=== PATIENT | female | born 1940 | race Caucasian/White ===

== ENCOUNTER → 2016-09-30 | Outpatient (CLI) | payer MEDICARE, MEDICAID ==
[~2016-09-30] MED LIST: BYSTOLIC20 MG PO; CATAPRES0.1 MG PO; COZAAR50 MG PO; DESVENLAFAXINE50 M1 PO; FLONASE 50 MCG/16 GM NOSE; HALCION0.25 MG PO; HYDRODIURIL25 MG PO; LIPITOR20 M1 PO; MIRAPEX0.5 MG PO; NEXIUM40 MG PO; NORVASC5 MG PO; SINGULAIR10 MG PO; TYLENOL EXTRA500 MG PO; ULTRAM50 MG PO; VITAMIN D32000 UNI1 PO; ZYRTEC10 MG PO
== END | disposition disaster alternative care site (69) ==
LOC: GRAD 12:31
DX: Z87.891 Personal history of nicotine dependence (principal); N28.1 Cyst of kidney, acquired; N26.1 Atrophy of kidney (terminal); I70.1 Atherosclerosis of renal artery
CPT/HCPCS: G0297

== ENCOUNTER → 2016-10-20 | Outpatient (CLI) | payer MEDICARE, MEDICAID ==
[2016-10-20 17:01] LABS: BASOPHIL % 0.2 %; EOSINOPHIL % 0.7 %; HEMATOCRIT 38.2 % (33.0-46.0); HEMOGLOBIN 12.4 g/dL (10.0-15.0); IMMATURE GRANULOCYTE % 0.2 %; MCH 30.5 pg (27.0-34.0); MCHC 32.5 gm/dL (32.0-36.5); MCV 93.9 fl (83.0-98.0); MONOCYTE # 0.4 K/uL (0.0-1.0); MONOCYTE % 8.3 %; MPV 10.7 fl (9.4-12.4); NEUTROPHIL # (ANC) 3.2 K/uL (1.8-7.8); NEUTROPHIL % 68.6 %; NRBC % 0 /100WBC (0-0.00); PLATELET COUNT 172 K/uL (150-450); RBC 4.07 M/uL (3.50-5.50); RDW-CV 13.4 % (11.9-14.6); WBC 4.6 K/uL (4.0-11.0)
[2016-10-20 17:23] LABS: ANION GAP 12.8 (10.0-19.0); CALCIUM 8.3 mg/dL (8.5-10.5); CREATININE 1.1 mg/dL (0.5-1.1); POTASSIUM 3.8 mMol/L (3.7-5.1); TOTAL BILIRUBIN 0.5 mg/dL (0.0-1.5); TOTAL PROTEIN 6.8 g/dL (6.0-8.4)
== END ==
LOC: LNHI 16:44
PROVIDERS: Surgery Vascular Surgery
DX: Z01.818 Encounter for other preprocedural examination (principal)

== ENCOUNTER → 2016-10-22 | Outpatient (CLI) | payer MEDICARE, MEDICAID | END | disposition disaster alternative care site (69) | LOC: GRAD 07:38 | DX: I70.1 Atherosclerosis of renal artery (principal); I70.0 Atherosclerosis of aorta; I77.4 Celiac artery compression syndrome | CPT/HCPCS: Q9967 ==

== ENCOUNTER 2016-12-25 10:19 | Observation (INO) | payer MEDICARE, MEDICAID ==
[~2016-12-25] VITALS: Ht 157.5 cm; Wt 82.7 kg
--- NOTE | ~2016-12-25 | DS ---
PATIENT'S NAME: PETTY LIVINGSTON [facility] AGE: 76 Y [address] ROOM: [address] [address] LOCATION: [facility] ADMIT DATE: 12/25/2016 Discharge Summary DISCHARGE DATE: 12/27/2016 FAMILY PHYSICIAN: Nel Dove MD ATTENDING PHYSICIAN: Sierra Arciniega REASON FOR ADMISSION: The patient was a scheduled admission for an elective procedure. TREATMENT RENDERED: On the day of admission, the patient was taken to the operating room and had surgery. Surgery was bilateral laminectomy and foraminotomy at L4, L5, and S1. The patient had an unintended durotomy at the time of surgery, which was repaired with suture. Otherwise, her surgery was uncomplicated. Postoperative course was marked by urinary retention and she had a Quigley catheter placed. It was possible to remove the Quigley catheter eventually for the patient to go home; however, I did tell her to come back if she could not urinate because she might still have urinary retention once she went home. Otherwise, her postoperative course was uneventful. The plan is to see the patient back in [facility]surgery [facility] for followup in a week or two and also to remove her sutures at the same time. FINAL DIAGNOSIS: Lumbar spinal stenosis, status post lumbar laminectomy. MD JEYSON BARRYO/danyal /[id number] d: 01/06/17 0204 t: 01/07/17 1540, DISCHARGE SUMMARY
--- NOTE | ~2016-12-25 | OR ---
PATIENT'S NAME: PETTY LIVINGSTON [facility] AGE: 76 Y [address] ROOM: [address] [address] LOCATION: [facility] ADMIT DATE: 12/25/2016 OR/Procedure Report DISCHARGE DATE: 12/27/2016 FAMILY PHYSICIAN: Nel Dove MD ATTENDING PHYSICIAN: Sierra Underwood SURGEON: Sierra Underwood MD DATAPOWER DEVELOPER: Renetta Khan CST DATE OF PROCEDURE: 12/25/2016 PREOPERATIVE DIAGNOSIS: Lumbar spinal stenosis. POSTOPERATIVE DIAGNOSIS: Lumbar spinal stenosis. PROCEDURES PERFORMED: 1. Bilateral laminectomy with decompression of neural elements and foraminotomy at L4-L5. 2. Bilateral laminectomy with decompression of neural elements and foraminotomy at L5-S1. 3. Repair of unintended durotomy. ANESTHESIA: General. HISTORY/INDICATIONS: This patient is a 76-year-old female who presented with back and leg pain. The patient's symptoms had gotten progressively worse, and it was difficult for her to stand up even to bake, and she was using a walker to get around. She had done epidural injections without much benefit. Surgery was recommended. The above procedures, benefits and risks were discussed with the patient and with her consent, she was brought to the operating room for surgery. PROCEDURE IN DETAIL: In the operating room, the patient was placed in a supine position. Anesthesia was induced. She was intubated. The patient was then carefully rolled to a prone position on the Corey table taking care to protect all pressure points. The incision was marked out in the midline of her lower back and the whole area was prepped and draped in a sterile fashion. Local anesthesia was infiltrated along the incision line. The #10 blade was used to open the incision. It was deepened to the fascial layer. Self- retaining retractors were placed. The fascia was then opened and the incision deepened until the tips of the spinous processes were identified. The paraspinous muscles were dissected off the spinous process and laminae of L4, L5, and S1. Intraoperative x-ray was obtained to verify our levels. Laminectomy was then carried out bilaterally at L4, L5, and S1. There was significant foraminal stenosis at all the levels. Working very carefully, the nerve roots and the dural sac were decompressed. There was previous surgery PATIENT'S NAME: PETTY LIVINGSTON [facility] AGE: 76 Y [address] ROOM: [place] [address] LOCATION: [facility] ADMIT DATE: 12/25/2016 OR/Procedure Report DISCHARGE DATE: 12/27/2016 FAMILY PHYSICIAN: Nel Dove MD ATTENDING PHYSICIAN: Sierra Underwood at the L3-L4 level. While working on the inferior edge of the L3 lamina and unintended durotomy or cord. This was recognized at the time of surgery and was repaired with stitches. There was no CSF leak at the end of the repair. DuraSeal and DuraGen were used to reinforce the dura repair. Upon completion of the procedure, the area was irrigated thoroughly and hemostasis was achieved. The incision was closed in layers using appropriate suture materials. A sterile dressing was applied. The patient's anesthesia was reversed. She was rolled back to a supine position, extubated, and taken back to the recovery room to complete her recovery. I was present and performed every aspect of this procedure. We did have an unintended durotomy which was repaired at the time of surgery. I expect the patient to do well from this procedure. SIERRA UNDERWOOD MD CNO/modl /[id number] CC: Nel Dove MD d: 01/05/17 1247 t: 01/05/17 1822, OPERATIVE SUMMARY
--- NOTE | 2016-12-26 06:36 | NUR ---
Pt was bladder scanned three times as she didnt have an urge to void >6 hours. Pt straight cathed at 0400 with only 300 out. Pt receiving ultram and iv morphine for pain. Pt had nausea w/ emesis this shift, zofran given w/ no result. Attempted to call for additional orders. Pt complains of headache after dry heaving. Pt up w/ 1 assist to bathroom.
--- NOTE | 2016-12-26 17:10 | NUR ---
Significant Event:Patient had issues with nausea and vomiting this am. Zofran 4mg x1 at 1050. Phenergan 25mh IM x2 last at 1358. Tylenol 1000mg at 1358. Ultram 50mg x1. Dressing dry intact to back at lt hip. CSM WNL. Up in chair and ambulated to BR with walker and one assist. Up able to void. Will be placing rodriguez cath. Poor oral intake. Nausea improved Follow up:
--- NOTE | 2016-12-26 23:07 | NUR ---
Significant Event: A/O X 3. HAS SLIGHT WAVES OF NAUSEA, NO VOMITING. REFUSED INTERVENTION AT THIS TIME. TAKEN 50% OF EVENING MEAL. BACK DRSGS DRY-INTACT. DENIES LEGS PAIN OR NUMBNESS. RT FOOT FUSED. IV FLUIDS INFUSING. 02 REAPPLIED AT 2100 at 1L FOR SATS DIPPED AT 88% WITH 02 94%. INCENTIVE SPIROMETER USAGE [id number]. BILATERAL CALF PNEUMATICS ON. TAKES WATER, KEPT IT DOWN. [place]ARILLO CATHETER PATENT. ULTRAM 50MG TAB ONE GIVEN AT 1851 FOR BACK PAIN RATING 6. AT 1950 [address] TYLEN[address] X [address] 1000MG AT 2216 FOR H/A RATE 3. TEMPS 99.6, 99.3 ORALLY. Follow up:
--- NOTE | 2016-12-27 03:48 | NUR ---
Significant Event: Vital signs stable. Sats at 93% on 1L 02. Frontal headache, rates pain 10/06, Dr. Arciniega aware of headache. Back pain, 10/06. Will give tylenol again this am (will update you with time). Nauseated after ultram given early in shift, so will see if pain is tolerated with Tylenol. Quigley in place with 650 ml out. Will remove this am. IV to L) hand with NS running at 75 ml/hr. Up with 1 assist, gait belt and walker. Follow up: Voiding. Monitor nausea.
[2016-12-27] MEDS ORDERED: ULTRAM50 MG PO (13:16)
--- NOTE | 2016-12-27 15:22 | NUR ---
Patient was AOx3. VSS. CSM WNL. Dressing changed and was clean,dry, and intact. Shower martell sent home and dressings. Patient had not voided yet since rodriguez was removed. Dr. Arciniega was aware of this and still dicharged the patient. Patient was wheeled to [facility] for dismissal at 1330.
== END 2016-12-27 13:30 | disposition disaster alternative care site (69) ==
LOC: GPOC 10:19 → G3N 10:19 → GPOC 10:30 → G3N 19:20 → GPOC 19:21 → G3N 12-27 13:30 → GPOC 12-27 13:30 → G3N 12-27 13:30
PROVIDERS: ADMIT Neurological Surgery
PROC: 00NY0ZZ Release Lumbar Spinal Cord, Open Approach (ICD-10-PCS; principal; 2016-12-25)
DX: M48.06 Spinal stenosis, lumbar region (principal); M48.07 Spinal stenosis, lumbosacral region; M43.16 Spondylolisthesis, lumbar region; M19.90 Unspecified osteoarthritis, unspecified site; K21.9 Gastro-esophageal reflux disease without esophagitis; I10 Essential (primary) hypertension; Z90.710 Acquired absence of both cervix and uterus; Z87.891 Personal history of nicotine dependence; Z98.890 Other specified postprocedural states; Z79.891 Long term (current) use of opiate analgesic; Z79.899 Other long term (current) drug therapy; Z88.8 Allergy status to other drugs, medicaments and biological substances
CPT/HCPCS: C1763; G0378; G8978; G8979; G8980; G8987; G8988; G8989; J0690; J1040; J2001; J2250; J2270; J2405; J2550; J2795; J3010; J7030; J7120

== ENCOUNTER → 2017-01-26 | Outpatient (CLI) | payer MEDICARE, MEDICAID | LOC: LFPA 10:16 | DX: R10.13 Epigastric pain (principal) ==

== ENCOUNTER → 2017-02-18 | Outpatient (CLI) | payer MEDICARE, MEDICAID ==
--- NOTE | 2017-02-18 16:45 | NUR ---
1430 DR BURK HERE, IN TO VISIT WITH PT REGARDING MRI RESULTS. DR BURK WAITING TO HEAR FROM DR UNDERWOOD 1530 DR BURK IN TO VISIT WITH PT REGARDING CONVERSATION WITH DR UNDERWOOD. PT AGREES TO CANCEL PROCEDURE 9610 PT DISMISSED TO CAR PER W/C WITH
== END | disposition disaster alternative care site (69) ==
LOC: GPOC 02-17 15:00
DX: M54.40 Lumbago with sciatica, unspecified side (principal); Z98.890 Other specified postprocedural states

== ENCOUNTER 2017-02-20 16:07 | Emergency (ER) | payer MEDICARE, MEDICAID ==
--- NOTE | ~2017-02-20 | ENPV ---
Vascular Lower Extremities DVT Study Procedure Demographics Patient Name PETTY LIVINGSTON Date of Study 02/20/2017 Patient Number [id number] Gender Female Date of 1940 Age 76 Visit Number [id number] Height Accession Number [id number] Weight Room Number BSA BMI Referring Derrell Vazquez MD Interpreting Nino Lira MD Physician Millie Watkins MD Physician Physician Ordering Physician Millie Watkins MD [employer] Senior Maintenance Machinist Beth Campos RVT Conclusions Summary No evidence of deep vein thrombosis or superficial thrombophlebitis in the right lower extremity . Procedure Type of Study: Veins:Lower Extremities DVT Study, Lower Extremity Right. Indications for Study:Pain in Limb. Appropriate Use Criteria:9 Patient Status:STAT. Study Location:ER. Technical Quality:Adequate visualization. Velocities are measured in cm/s ; Diameters are measured in cm Right Lower Extremities DVT Study Measurements Right 2D and Doppler Measurements + + + + +------+------+ + !Location !Visualized!Compressibility!Thrombosis!Signal!Reflux!Reflux ! ! ! ! ! ! ! !(sec) ! + + + + +------+------+ + !GSV Thigh !Yes !Yes !None !Phasic!No ! ! + + + + +------+------+ + !Common !Yes !Yes !None !Phasic!No ! ! !Femoral ! ! ! ! ! ! ! + + + + +------+------+ + !Prox !Yes !Yes !None !Phasic!No ! ! !Femoral ! ! ! ! ! ! ! + + + + +------+------+ + !Mid Femoral!Yes !Yes !None !Phasic!No ! ! + + + + +------+------+ + !Dist !Yes !Yes !None !Phasic!No ! ! !Femoral ! ! ! ! ! ! ! + + + + +------+------+ + !Popliteal !Yes !Yes !None !Phasic!No ! ! + + + + +------+------+ + !Gastroc !Yes !Yes !None !Phasic!No ! ! + + + + +------+------+ + !PTV !Yes !Yes !None !Phasic!No ! ! + + + + +------+------+ + !Peroneal !Yes !Yes !None !Phasic!No ! ! + + + + +------+------+ + Left Lower Extremities DVT Study Measurements Left 2D and Doppler Measurements + + + + +------+------+ + !Location !Visualized!Compressibility!Thrombosis!Signal!Reflux!Reflux ! ! ! ! ! ! ! !(sec) ! + + + + +------+------+ + !Common !Yes !Yes !None ! ! ! ! !Femoral ! ! ! ! ! ! ! + + + + +------+------+ + Signature dtt: ISADORA RAZA dtd: 02/20/17 [facility] Physician Self Edit
--- NOTE | ~2017-02-20 | ER ---
PATIENT'S NAME: PETTY LIVINGSTON [facility] AGE: 76 Y [address] ROOM: [place] [id number] LOCATION: [facility] ADMIT DATE: 02/20/2017 ER/Outpatient Report DISCHARGE DATE: 02/20/2017 FAMILY PHYSICIAN: Nel Dove MD ATTENDING PHYSICIAN: Roland Pinto Time of Arrival: 1611 hours. Time of Exam: 1611 hours. CHIEF COMPLAINT: Right hip and leg pain. HISTORY OF PRESENT ILLNESS: The patient states she has had a long history of right hip and leg pain. She has had some back surgery in the past due to the pain, which did not make it feel better. She had an MRI done on 02/18/2017, she said it showed that there was fluid in there, so they were unable to do an epidural injection to the hip area. She says the pain is worse today, goes all the way down into her back of her right calf area and into the ankle area. She has not had any recent injury; has not fallen; has not twisted, done anything different. She is tender to palpate on the right calf area. ALLERGIES: HYDROCODONE. MEDICATIONS: On her chart and reviewed by me. PAST MEDICAL HISTORY: Hypertension, hyperlipidemia. PAST SURGERIES: Right foot and ankle surgery, she has had her right ankle fused; on December 25, 2016, she did have back surgery; and she has had hysterectomy. SOCIAL HISTORY: She presents to the ER accompanied by her . Denies use of tobacco, drugs, or alcohol. REVIEW OF SYSTEMS: Negative other than those mentioned in the HPI. PHYSICAL EXAMINATION: VITAL SIGNS: She weighed 80.7 kg. Blood pressure was 122/61, pulse is 66, respirations 20, temperature of 97.9 tympanic, and O2 saturation was 98% on PATIENT'S NAME: PETTY LIVINGSTON [facility] AGE: 76 Y [address] ROOM: [place], [place] [address] LOCATION: [facility] ADMIT DATE: 02/20/2017 ER/Outpatient Report DISCHARGE DATE: 02/20/2017 FAMILY PHYSICIAN: Nel Dove MD ATTENDING PHYSICIAN: Roland Pinto room air. GENERAL: She is awake, alert, and oriented x4. SKIN: [place], warm, and dry. RESPIRATIONS: Even and nonlabored. Lung sounds are clear throughout. HEART: Regular rate and rhythm. MUSCULOSKELETAL: She is tender on the right hip area, behind the right knee and she is painful to palpate the right calf area. She has strong pedal pulses. The leg is slightly swollen, but no redness of the right leg is noted. LABORATORY DATA AND X-RAYS: Lab work was done. Her CBC is within normal limits. Sedimentation rate was 12. Chem panel was within normal limits. Her CRP was less than 0.29, lactate was 0.9, and procalcitonin was normal. Did do a venous Doppler of the right leg, reports no signs of DVT. X-rayed her right hip and pelvis, no signs of acute fracture. EMERGENCY ROOM COURSE: Reviewed the patient with Dr. Pinto. The patient was given tramadol 50 mg p.o. She reports as long as she is just laying on the cart she is feeling better. IMPRESSION: Right leg pain. PLAN: Home, rest. Ice or heat to the area. I encouraged her to take the tramadol as directed for pain, she had not taken any yet today. She states she has been in touch with Dr. Arciniega, I encouraged her to call his office on Thursday for followup. She is welcome to return to the ER as needed. She verbalized understanding. SHIRA MANSFIELD APRN FOR DO TEENA FLOWER/sofia /[id number] d: 02/21/17 0157 t: 02/25/17 1343, OUTPATIENT REPORT
[2017-02-20 16:32] LABS: BASOPHIL % 0.2 %; EOSINOPHIL # 0.1 K/uL (0.0-0.5); EOSINOPHIL % 1.1 %; HEMATOCRIT 35.3 % (33.0-46.0); HEMOGLOBIN 11.9 g/dL (10.0-15.0); IMMATURE GRANULOCYTE % 0.2 %; LYMPHOCYTE # 0.9 K/uL (0.8-4.0); LYMPHOCYTE % 21.1 %; MCH 31.1 pg (27.0-34.0); MCHC 33.7 gm/dL (32.0-36.5); MCV 92.2 fl (83.0-98.0); MONOCYTE # 0.4 K/uL (0.0-1.0); MONOCYTE % 9.1 %; MPV 9.3 fl (9.4-12.4); NEUTROPHIL % 68.3 %; NRBC % 0 /100WBC (0-0.00); PLATELET COUNT 158 K/uL (150-450); RBC 3.83 M/uL (3.50-5.50); RDW-CV 14.8 % (11.9-14.6); WBC 4.4 K/uL (4.0-11.0)
[2017-02-20 16:51] LABS: ALBUMIN 3.6 gm/dL (3.5-5.0); ALK PHOS 70 IU/L (33-138); ALT 17 IU/L (12-78); ANION GAP 11.8 (10.0-19.0); AST 18 IU/L (10-40); BLOOD UREA NITROGEN 24 mg/dL (6-24); CALCIUM 7.9 mg/dL (8.5-10.5); CHLORIDE 104 mMol/L (96-110); CO2 26 mMol/L (22-32); POTASSIUM 3.8 mMol/L (3.7-5.1); SODIUM 138 mMol/L (135-145); TOTAL BILIRUBIN 0.4 mg/dL (0.0-1.5); TOTAL PROTEIN 6.4 g/dL (6.0-8.4)
== END 2017-02-20 17:54 | disposition disaster alternative care site (69) ==
LOC: GMED 16:07
PROVIDERS: Emergency Medicine
DX: M25.551 Pain in right hip (principal); I10 Essential (primary) hypertension; E78.5 Hyperlipidemia, unspecified; Z88.5 Allergy status to narcotic agent; Z98.890 Other specified postprocedural states; Z79.891 Long term (current) use of opiate analgesic; Z79.899 Other long term (current) drug therapy